=== PATIENT | female | born 1990 | race American Indian/Alaskan Native ===

== ENCOUNTER 2020-06-01 19:04 | Emergency (ER) | payer OTHER ==
[2020-06-01] MEDS ORDERED: IBUPROFEN 800 MG TAB PO ONE (22:27)
[2020-06-01] MEDS ORDERED: ACETAMINOPHEN 500 MG TAB PO ONE (22:27)
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
[2020-06-02 01:40] VITALS: BP 116/84
== END 2020-06-02 01:40 | disposition home or self-care (01) ==
LOC: ED 19:04
DX: S46.911A Strain of unspecified muscle, fascia and tendon at shoulder and upper arm level, right arm, initial encounter (principal); F17.200 Nicotine dependence, unspecified, uncomplicated; F12.10 Cannabis abuse, uncomplicated; Z79.1 Long term (current) use of non-steroidal anti-inflammatories (NSAID); Z79.899 Other long term (current) drug therapy; V49.59XA Passenger injured in collision with other motor vehicles in traffic accident, initial encounter; W22.10XA Striking against or struck by unspecified automobile airbag, initial encounter; Y93.89 Activity, other specified; Y92.410 Unspecified street and highway as the place of occurrence of the external cause; Y99.8 Other external cause status
CPT/HCPCS: 99282